=== PATIENT | female | born 1980 | race Caucasian/White ===

== ENCOUNTER 2016-10-02 13:48 | Day surgery (SDC) | payer OTHER ==
[~2016-10-02] VITALS: Ht 170.2 cm; Wt 125.2 kg
[~2016-10-02 13:48] MED LIST: ABILIFY2 MG PO; AMBIEN10 MG PO; AUGMENTIN875 MG PO; ELAVIL50 MG PO; ENDOCET 5-3251 EACH PO; FLECAINIDE ACET50 MG PO; FLECTOR 1.3%1 PATC1 TD; FLONASE16 G1 BOTH NARES; HYDROCODON-ACE1 EACH; JUNEL FE 1.5-31 EACH PO; LEXAPRO5 MG PO; LO-DOSE ASPIRIN81 M2 PO; METOPROLOL SUC100 MG PO; MOTRIN800 MG PO; NOHOMEMEDS; OMEPRAZOLE40 M1 PO; PEN-VEE K,VEET500 MG; PERCOCET 5/31 TABLET PO; SENNA LAXATIVE8.6 MG PO; TAMBOCOR50 MG PO; TOPAMAX100 MG PO; TOPROL XL100 MG PO
== END 2016-10-02 16:40 | disposition home or self-care (01) ==
LOC: PAIN 13:48 → SDC 14:15 → PAIN 14:15
DX: M47.896 Other spondylosis, lumbar region (principal); M54.16 Radiculopathy, lumbar region; F41.1 Generalized anxiety disorder; M46.1 Sacroiliitis, not elsewhere classified; K21.9 Gastro-esophageal reflux disease without esophagitis; M51.26 Other intervertebral disc displacement, lumbar region; G47.00 Insomnia, unspecified
CPT/HCPCS: J1030; J2250; J3010; S0020

== ENCOUNTER 2016-10-09 09:00 | Day surgery (SDC) | payer OTHER ==
[~2016-10-09] VITALS: Ht 170.2 cm; Wt 122.4 kg
== END 2016-10-09 10:32 | disposition home or self-care (01) ==
LOC: PAIN 09:00 → SDC 09:45 → PAIN 09:45
DX: M47.896 Other spondylosis, lumbar region (principal); M54.17 Radiculopathy, lumbosacral region; M46.1 Sacroiliitis, not elsewhere classified; F41.1 Generalized anxiety disorder; M51.26 Other intervertebral disc displacement, lumbar region; I48.91 Unspecified atrial fibrillation; M79.1 Myalgia; K21.9 Gastro-esophageal reflux disease without esophagitis
CPT/HCPCS: J1030; J2250; J3010; S0020